=== PATIENT | male | born 1970 | race Caucasian/White ===

== ENCOUNTER 2021-05-11 12:51 | Observation (INO) ==
[2021-05-11 12:23] LABS: ABG ALLEN TEST POS; ABG BASE EXCESS -4.3 mmol/L (-2.0-2.0); ABG HCO3 20.1 mmol/L (22-26)
[2021-05-11 12:47] LABS: BASOPHILS # (AUTO) 0.1 X10^3/uL (0.0-0.1); EOSINOPHILS % (AUTO) 0.2 % (0.9-2.9); HEMATOCRIT 47.4 % (42.0-54.0); HEMOGLOBIN 16.2 g/dL (13.5-18.0); LYMPHOCYTES # (AUTO) 0.7 X10^3/uL (1.3-2.9); LYMPHOCYTES % (AUTO) 18.5 % (21.0-51.0); MEAN CORPUSCULAR HEMOGLOBIN 29.7 pg (27.0-34.0); MEAN CORPUSCULAR HGB CONC 34.2 g/dL (33.0-35.0); MEAN CORPUSCULAR VOLUME 86.9 fL (80.0-100.0); MEAN PLATELET VOLUME 8.9 fL (7.4-11.0); MONOCYTES # (AUTO) 0.4 x10^3/uL (0.3-0.8); MONOCYTES % (AUTO) 10.2 % (0.0-13.0); NEUTROPHILS # (AUTO) 2.7 x10^3/uL (2.2-4.8); NEUTROPHILS % (AUTO) 68.1 % (42.0-75.0); RED BLOOD COUNT 5.46 X10^6/uL (4.7-6.0); RED CELL DISTRIBUTION WIDTH 12.7 % (11.6-16.5)
[~2021-05-11 12:51] MED LIST: NS 1,000 ML IV 1,000 ML IV ONE; NS 1,000 ML IV 1,000 ML ONE; PHARMACY CONSULT - IVERMECTIN XX SCH; REMDESIVIR 200 MG in NS 250 ML IV 250 ML IV ONE; TUSSIONEX PENNKINETIC SUSP PO PRN
--- NOTE | 2021-05-11 13:03 | RAD ---
HISTORYCOVID 19 +STUDYCHEST x-ray, 1 VIEWCOMPARISONNoneFINDINGSProbable mild infiltrates are seen in the periphery of the lower lungs. Appearance could possibly be artifactual from soft tissue attenuation, though. No pneumothorax, cardiomegaly, or pleural effusion is seen.IMPRESSIONPossible mild bilateral pneumonia could be due to COVID-19.Electronically signed by: Antione Valera (May 11, 2021 13:01:31)
[2021-05-11 13:11] LABS: ALANINE AMINOTRANSFERASE 50 Units/L (12-78); ALBUMIN 2.7 g/dL (3.4-5.0); ALKALINE PHOSPHATASE 102 Units/L (46-116); ASPARTATE AMINO TRANSFERASE 58 Units/L (15-37); BLOOD UREA NITROGEN 14 mg/dL (7-18); CALCIUM 8.8 mg/dL (8.5-10.1); CARBON DIOXIDE 23.6 mmol/L (21-32); CHLORIDE 95 mmol/L (98-107); CKMB % 1.7 % (<4); COR CA(FOR HYPOALB) 9.8 mg/dL (8.5-10.1); COR NA(FOR HYPERGLY) 138 mmol/L (136-145); CREATINE KINASE 58 Units/L (39-308); CREATINE KINASE MB < 1.0 ng/mL (0-4.0); CREATININE 1.11 mg/dL (0.70-1.30); SODIUM 131 mmol/L (136-145); TOTAL PROTEIN 7.4 g/dL (6.4-8.2); eGFR NON BLACK RACES > 60 (>60)
[2021-05-11] MEDS ORDERED: NS 1,000 ML IV 1,000 ML ONE (14:17)
[2021-05-11] MEDS ORDERED: LUVOX ONE (14:57)
[2021-05-11] MEDS ORDERED: ZINC SULFATE ONE (14:57)
[2021-05-11] MEDS ORDERED: IVERMECTIN ONE (14:58)
[2021-05-11] MEDS ORDERED: LOVENOX INJ 30 MG SYR SC ONE (14:58)
[2021-05-11] MEDS ORDERED: SOLU-Medrol 40 MG VIAL ONE (14:58)
[2021-05-11] MEDS ORDERED: ROBITUSSIN DM ONE (14:59)
[2021-05-11] MEDS: LOVENOX INJ 30 MG SYR SC SCH ×2 (15:04→20:45)
[2021-05-11] MEDS: SOLU-Medrol 125 MG VIAL IVP SCH ×2 (15:04→22:42)
[2021-05-11] MEDS: LUVOX PO SCH ×2 (15:04→20:24)
[2021-05-11] MEDS: ZINC SULFATE PO SCH ×2 (15:05→20:46)
[2021-05-11] MEDS: ROBITUSSIN DM PO SCH ×4 (15:05→20:46)
[2021-05-11] MEDS: VITAMIN A PO SCH (15:05)
[2021-05-11] MEDS: IVERMECTIN PO SCH (15:05)
[2021-05-11] MEDS: VITAMIN C PO SCH ×2 (15:06→17:00)
[2021-05-11] MEDS: VSL#3 PO SCH (15:06)
[2021-05-11] MEDS: NS 1,000 ML IV 1,000 ML IV SCH ×2 (15:42→20:45)
[2021-05-11] MEDS ORDERED: REMDESIVIR IV ONE (16:05)
[2021-05-11] MEDS ORDERED: NS 250 ML IV 250 ML IV ONE (16:05)
[2021-05-11 16:15] LABS: CKMB % 1.7 % (<4); CREATINE KINASE 60 Units/L (39-308); CREATINE KINASE MB < 1.0 ng/mL (0-4.0)
[2021-05-11] MEDS: BROVANA IN SCH (20:32)
[2021-05-11] MEDS: PULMICORT NEB TX 0.5 MG NEB SCH (20:32)
[2021-05-11] MEDS: NovoLIN R (or HumuLIN R) SUBCUT PRN (20:47)
[2021-05-11 20:50] LABS: CREATINE KINASE MB < 1.0 ng/mL (0-4.0)
[2021-05-11 21:05] LABS: CKMB % 1.5 % (<4); CREATINE KINASE 68 Units/L (39-308)
[2021-05-11] MEDS: AMBIEN PO PRN (21:43)
[2021-05-12] MEDS: NS 1,000 ML IV 1,000 ML IV SCH ×3 (03:13→20:57)
[2021-05-12 05:47] LABS: ALANINE AMINOTRANSFERASE 45 Units/L (12-78); ALBUMIN 2.4 g/dL (3.4-5.0); ALKALINE PHOSPHATASE 92 Units/L (46-116); ASPARTATE AMINO TRANSFERASE 44 Units/L (15-37); BLOOD UREA NITROGEN 18 mg/dL (7-18); CALCIUM 8.4 mg/dL (8.5-10.1); CARBON DIOXIDE 19.5 mmol/L (21-32); CHLORIDE 100 mmol/L (98-107); COR CA(FOR HYPOALB) 9.7 mg/dL (8.5-10.1); COR NA(FOR HYPERGLY) 143 mmol/L (136-145); CREATININE 1.08 mg/dL (0.70-1.30); SODIUM 136 mmol/L (136-145); TOTAL PROTEIN 6.9 g/dL (6.4-8.2); eGFR NON BLACK RACES > 60 (>60)
[2021-05-12 05:57] LABS: BASOPHILS % (AUTO) 0.3 % (0.2-1.0); EOSINOPHILS % (AUTO) 0.1 % (0.9-2.9); HEMATOCRIT 43.9 % (42.0-54.0); HEMOGLOBIN 15.2 g/dL (13.5-18.0); LYMPHOCYTES # (AUTO) 0.7 X10^3/uL (1.3-2.9); LYMPHOCYTES % (AUTO) 27.5 % (21.0-51.0); MEAN CORPUSCULAR HEMOGLOBIN 29.7 pg (27.0-34.0); MEAN CORPUSCULAR HGB CONC 34.5 g/dL (33.0-35.0); MEAN PLATELET VOLUME 8.8 fL (7.4-11.0); MONOCYTES # (AUTO) 0.1 x10^3/uL (0.3-0.8); MONOCYTES % (AUTO) 4.3 % (0.0-13.0); NEUTROPHILS # (AUTO) 1.6 x10^3/uL (2.2-4.8); NEUTROPHILS % (AUTO) 67.8 % (42.0-75.0); RED BLOOD COUNT 5.11 X10^6/uL (4.7-6.0); RED CELL DISTRIBUTION WIDTH 12.7 % (11.6-16.5); WHITE BLOOD COUNT 2.4 X10^3/uL (3.6-10.0)
[2021-05-12] MEDS: NovoLIN R (or HumuLIN R) SUBCUT PRN ×4 (05:58→21:00)
[2021-05-12] MEDS: SOLU-Medrol 125 MG VIAL IVP SCH ×3 (05:58→22:10)
[2021-05-12] MEDS: VITAMIN C PO SCH ×4 (05:58→17:07)
--- NOTE | 2021-05-12 06:03 | RAD ---
HISTORYSOBSTUDYCHEST, 1 [facility]COMPARISONAbra[facility] 2021 at 12:21 p.m.TECHNIQUEPortable chest radiographFINDINGSHeart size and mediastinal contours are normal. Lungs are hypoinflated but otherwise clear as are the pleural spaces. No free air or pneumothorax. No acute bony abonormality.IMPRESSIONNo organized pulmonary infiltrates identified by portable technique.Electronically signed by: HANS PERKINS (May 12, 2021 06:02:48)
[2021-05-12] MEDS: PULMICORT NEB TX 0.5 MG NEB SCH ×2 (09:11→20:34)
[2021-05-12] MEDS: BROVANA IN SCH ×2 (09:11→20:34)
[2021-05-12] MEDS: IVERMECTIN PO SCH (09:21)
[2021-05-12] MEDS: LOVENOX INJ 30 MG SYR SC SCH ×2 (09:22→20:59)
[2021-05-12] MEDS: ROBITUSSIN DM PO SCH ×4 (09:23→21:00)
[2021-05-12] MEDS: VITAMIN A PO SCH (09:23)
[2021-05-12] MEDS: LUVOX PO SCH ×2 (09:23→20:59)
[2021-05-12] MEDS: REMDESIVIR 100 MG in NS 250 ML IV 250 ML IV SCH (09:23)
[2021-05-12] MEDS: VSL#3 PO SCH (09:23)
[2021-05-12] MEDS: ZINC SULFATE PO SCH ×2 (09:24→21:00)
[2021-05-12] MEDS ORDERED: ROBAXIN PO PRN (10:28)
[2021-05-12] MEDS: ZOSYN VIAL 3.375 GRAMS 3.375 G in NS 100 ML IV + SPIKE MINIBAG* 100 ML IV SCH ×3 (11:35→22:10)
[2021-05-12] MEDS: VORTIOXETINE 20 MG PO SCH (11:36)
[2021-05-12] MEDS: LAMICTAL TAB 100 MG PO SCH (11:36)
[2021-05-12] MEDS: ZOCOR TAB 40 MG PO SCH ×2 (11:36→21:01)
[2021-05-12 11:58] VITALS: BMI 40.4
[2021-05-12 13:12] LABS: PLATELET MORPHOLOGY COMMENT NORMAL (NORMAL)
--- NOTE | 2021-05-12 14:57 | DR.H&P ---
H&P History & Physical for Day of: H&P Date: 05/12/21 Chief Complaint Chief Complaint: fatigue, SOB Allergies Allergies Allergy/AdvReac Type Severity Reaction Status Date / Time lisinopril Allergy Unknown Verified 05/11/21 13:51 History of Present Illness History of Present Illness: Mr Julien is a 50 y/o male with a PMH Type 2 DM, HTN, HLD, chronic pain/anxiety and obesity presents with worsening dyspnea and fatigue. Patient tested positive for covid on 05/05/21.He reports feeling weaker for the last few days and worsening dyspnea on exertion. He is currently on 2L NC. He was on 3L before. He states he feels better today. Labs/imaging reviewed CXR: possible b/l pneumonia [id number]/60/20.1 Plan: Wean O2 as tolerated, continue IV antibiotics, add Zosyn. Continue IV Remdesivir. Continue IV Solumedrol, nebs and IS. Continue home medications. Will decrease IVF to 75cc/hr. Ambulate as tolerated. PT/OT as tolerated. Monitor AM labs/imaging. Past Medical History Past Medical History: Diabetes, Dyslipidemia and Hypertension Additional Medical History: Obesity Past Surgical History Surgical History: Lithotripsy Social History Does patient currently use any type of tobacco product: No Have you used tobacco products in the last 12 months: No Type of Tobacco Use: None Alcohol Use: None Drug Use: None Medications Home Medications: lisinopril Allergy (Unknown, Verified 05/11/21 13:51) CONTINUE taking the following medications ciprofloxacin HCl 500 mg PO BID 05/11/21 [History] clonazepam 1 mg PO BID 05/11/21 [History] insulin degludec [Tresiba FlexTouch U-200] 20 unit SUBCUT QHS 05/11/21 [History] lamotrigine 200 mg PO DAILY 05/11/21 [History] losartan 50 mg PO QHS 05/11/21 [History] metformin 1,000 mg PO BID 05/11/21 [History] methocarbamol 750 mg PO BID PRN 05/11/21 [History] mupirocin 1 applic TOPICAL TID 05/11/21 [History] oxycodone-acetaminophen 1 tab PO QID PRN 05/11/21 [History] quetiapine 150 mg PO QHS 05/11/21 [History] simvastatin 40 mg PO QHS 05/11/21 [History] vortioxetine [Trintellix] 20 mg PO DAILY 05/11/21 [History] zolpidem 12.5 mg PO QHS 05/11/21 [History] Labs Result Diagrams: 05/12/21 05:04 05/12/21 11:57 Labs: 05/11/21 20:59 Sputum - Expectorated Sputum - Final Laboratory WBC 2.4 X10^3/uL (3.6-10.0) L 05/12/21 05:04 RBC 5.11 X10^6/uL (4.7-6.0) 05/12/21 05:04 Hgb 15.2 g/dL (13.5-18.0) 05/12/21 05:04 Hct 43.9 % (42.0-54.0) 05/12/21 05:04 MCV 86.0 fL (80.0-100.0) 05/12/21 05:04 MCH 29.7 pg (27.0-34.0) 05/12/21 05:04 MCHC 34.5 g/dL (33.0-35.0) 05/12/21 05:04 RDW 12.7 % (11.6-16.5) 05/12/21 05:04 Plt Count 121 X10^3/uL (150.0-450.0) L 05/12/21 05:04 Plt Count Comment Adequate (ADEQUATE) 05/12/21 05:04 MPV 8.8 fL (7.4-11.0) 05/12/21 05:04 Neut % (Auto) 67.8 % (42.0-75.0) 05/12/21 05:04 Lymph % (Auto) 27.5 % (21.0-51.0) 05/12/21 05:04 [place] % (Auto) 4.3 % (0.0-13.0) 05/12/21 05:04 Eos % (Auto) 0.1 % (0.9-2.9) L 05/12/21 05:04 Baso % (Auto) 0.3 % (0.2-1.0) 05/12/21 05:04 Neut # (Auto) 1.6 x10^3/uL (2.2-4.8) L 05/12/21 05:04 Lymph # (Auto) 0.7 X10^3/uL (1.3-2.9) L 05/12/21 05:04 [place] # (Auto) 0.1 x10^3/uL (0.3-0.8) L 05/12/21 05:04 Eos # (Auto) 0.0 x10^3/uL (0.0-0.2) 05/12/21 05:04 Baso # (Auto) 0.0 X10^3/uL (0.0-0.1) 05/12/21 05:04 Absolute Nucleated RBC 0.1 /100WBC 05/12/21 05:04 Total Counted 100 05/12/21 05:04 Neutrophils % (Manual) 75 % (39-76) 05/12/21 05:04 Lymphocytes % (Manual) 21 % (13-43) 05/12/21 05:04 Monocytes % (Manual) 4 % (4-9) 05/12/21 05:04 Plt Morphology Comment Normal (NORMAL) 05/12/21 05:04 RBC Morphology Normal (NORMAL) 05/12/21 05:04 D-Dimer 0.96 ug/ml (0.0-0.57) H* 05/11/21 12:27 Sample Site Lrad 05/11/21 12:15 ABG pH 7.380 (7.35-7.45) 05/11/21 12:15 ABG pCO2 34.0 mmHg (35.0-45.0) L 05/11/21 12:15 ABG pO2 60.0 mmHg (80.0-100.0) L 05/11/21 12:15 ABG HCO3 20.1 mmol/L (22-26) L 05/11/21 12:15 ABG O2 Saturation 90.0 % (90-100) 05/11/21 12:15 ABG Base Excess -4.3 mmol/L (-2.0-2.0) L 05/11/21 12:15 Joshua Test Pos 05/11/21 12:15 A-a Gradient 47.0 mmHg 05/11/21 12:15 FiO2 21.0 05/11/21 12:15 Blood Gas 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 05/11/21 12:15 Sodium 136 mmol/L (136-145) 05/12/21 05:04 Corrected Sodium 143 mmol/L (136-145) 05/12/21 05:04 Potassium 5.0 mmol/L (3.5-5.1) 05/12/21 05:04 Chloride 100 mmol/L (98-107) 05/12/21 05:04 Carbon Dioxide 19.5 mmol/L (21-32) L 05/12/21 05:04 BUN 18 mg/dL (7-18) 05/12/21 05:04 Creatinine 1.08 mg/dL (0.70-1.30) 05/12/21 05:04 Est GFR (MDRD) Af Amer > 60 (>60) 05/12/21 05:04 Est GFR (MDRD) Non-Af > 60 (>60) 05/12/21 05:04 Glucose 432 mg/dL (65-99) H 05/12/21 11:57 POC Glucose (mg/dL) 428 mg/dL (65-99) H 05/12/21 11:40 Calcium 8.4 mg/dL (8.5-10.1) L 05/12/21 05:04 Corrected Calcium 9.7 mg/dL (8.5-10.1) 05/12/21 05:04 Total Bilirubin 0.40 mg/dL (0.2-1.0) 05/12/21 05:04 AST 44 Units/L (15-37) H 05/12/21 05:04 ALT 45 Units/L (12-78) 05/12/21 05:04 Alkaline Phosphatase 92 Units/L (46-116) 05/12/21 05:04 Creatine Kinase 68 Units/L (39-308) 05/11/21 20:07 CK-MB (CK-2) < 1.0 ng/mL (0-4.0) 05/11/21 20:07 CK/CKMB % Calc 1.5 % (<4) 05/11/21 20:07 Troponin I High Sens 4.4 ng/L (4.0-60.0) 05/11/21 20:07 C-Reactive Protein 66.60 mg/L (0-3.0) H 05/12/21 05:04 B-Natriuretic Peptide 77.0 pg/mL (0-79) 05/12/21 05:04 Total Protein 6.9 g/dL (6.4-8.2) 05/12/21 05:04 Albumin 2.4 g/dL (3.4-5.0) L 05/12/21 05:04 Globulin 4.5 g/dL (2.5-4.5) 05/12/21 05:04 Albumin/Globulin Ratio 0.5 Ratio (1.1-2.1) L 05/12/21 05:04 Review of Systems Constitutional: Weakness and Malaise Eyes: No Symptoms Reported ENT: No Symptoms Reported Respiratory: Cough, Shortness of Breath and SOB with Excertion Cardiovascular: No Symptoms Reported Gastrointestinal: Nausea Genitourinary: No Symptoms Reported Musculoskeletal: No Symptoms Reported Skin: No Symptoms Reported Neurological: No Symptoms Reported Physical Exam Vital Signs: Temperature 97.6 F Pulse Rate [Right Radial] 94 Pulse Rate 71 Respiratory Rate 18 Blood Pressure [Left Arm] 113/74 O2 Sat by Pulse Oximetry 94 Oriented: Normal Eyes: Normal Ear: Normal Nose: Normal Throat: Normal Respiratory: Diminished Throughout Cardiovascular: Normal Auscultation: Bowel Sounds: Normal Palpation: Normal Tenderness: Normal Skin: Normal Musculoskeletal: Normal Psychiatric: Normal Mood Description: Calm Affect: Normal Speech Pattern: Clear and Appropriate Assessment/Plan (1) Pneumonia due to COVID-19 virus: Status: Acute (2) HTN (hypertension): Qualifiers: Hypertension type: primary hypertension Qualified Code(s): I10 - Essential (primary) hypertension Status: Acute (3) Obesity: Qualifiers: Body mass index: BMI 40.0-44.9 Obesity classification: adult class 3 (BMI >= 40) Obesity type: unspecified obesity type Serious obesity comorbidity presence: without serious comorbidity Qualified Code(s): E66.01 - Morbid (severe) obesity due to excess calories; Z68.41 - Body mass index [BMI] 40.0-44.9, adult Status: Acute (4) HLD (hyperlipidemia): Qualifiers: Hyperlipidemia type: unspecified Qualified Code(s): E78.5 - Hyperlipidemia, unspecified Status: Acute Review H&P Reviewed: Yes Patient was examined?: Yes
[2021-05-12] MEDS: COZAAR PO SCH (20:57)
[2021-05-12] MEDS: SNACK - Diabetic Appropriate PO SCH (20:57)
[2021-05-12] MEDS: LANTUS SC SCH (20:58)
[2021-05-12] MEDS: AMBIEN PO PRN (21:13)
[2021-05-13] MEDS: VITAMIN C PO SCH ×5 (00:08→23:57)
[2021-05-13] MEDS: NovoLIN R (or HumuLIN R) SUBCUT PRN ×4 (01:22→23:14)
[2021-05-13] MEDS: NS 1,000 ML IV 1,000 ML IV SCH ×3 (04:50→21:54)
[2021-05-13] MEDS: ZOSYN VIAL 3.375 GRAMS 3.375 G in NS 100 ML IV + SPIKE MINIBAG* 100 ML IV SCH ×3 (05:47→21:52)
[2021-05-13] MEDS: SOLU-Medrol 125 MG VIAL IVP SCH (05:47)
[2021-05-13 06:16] LABS: BASOPHILS % (AUTO) 0.2 % (0.2-1.0); HEMATOCRIT 47.2 % (42.0-54.0); HEMOGLOBIN 16.2 g/dL (13.5-18.0); LYMPHOCYTES % (AUTO) 12.1 % (21.0-51.0); MEAN CORPUSCULAR HEMOGLOBIN 29.8 pg (27.0-34.0); MEAN CORPUSCULAR HGB CONC 34.3 g/dL (33.0-35.0); MONOCYTES # (AUTO) 0.4 x10^3/uL (0.3-0.8); MONOCYTES % (AUTO) 5.4 % (0.0-13.0); NEUTROPHILS # (AUTO) 6.6 x10^3/uL (2.2-4.8); NEUTROPHILS % (AUTO) 82.3 % (42.0-75.0); RED BLOOD COUNT 5.42 X10^6/uL (4.7-6.0); RED CELL DISTRIBUTION WIDTH 12.8 % (11.6-16.5)
--- NOTE | 2021-05-13 06:31 | RAD ---
HISTORYSOB HX: HTN, DMSTUDYCHEST, 1 [id number]/2022FINDINGSThe trachea is midline. The cardiac silhouette is unremarkable. The lungs are clear without focal infiltrate or effusion. Pulmonary vasculature within normal limits. No pneumothorax. The bony thorax is unremarkable.IMPRESSIONNo acute cardiopulmonary findings .Electronically signed by: Bernabe Diaz (May 13, 2021 06:29:57)
[2021-05-13 06:35] LABS: CALCIUM 9.2 mg/dL (8.5-10.1); CARBON DIOXIDE 20.2 mmol/L (21-32); CREATININE 1.73 mg/dL (0.70-1.30)
[2021-05-13] MEDS: BROVANA IN SCH ×2 (09:05→20:40)
[2021-05-13] MEDS: PULMICORT NEB TX 0.5 MG NEB SCH ×2 (09:05→20:40)
[2021-05-13] MEDS: VSL#3 PO SCH (10:00)
[2021-05-13] MEDS: VITAMIN A PO SCH (10:00)
[2021-05-13] MEDS: REMDESIVIR 100 MG in NS 250 ML IV 250 ML IV SCH (10:00)
[2021-05-13] MEDS: LAMICTAL TAB 100 MG PO SCH (10:00)
[2021-05-13] MEDS: VORTIOXETINE 20 MG PO SCH (10:00)
[2021-05-13] MEDS: IVERMECTIN PO SCH (10:00)
[2021-05-13] MEDS: ZINC SULFATE PO SCH ×2 (10:00→21:52)
[2021-05-13] MEDS: LUVOX PO SCH ×2 (10:00→21:55)
[2021-05-13] MEDS: LOVENOX INJ 30 MG SYR SC SCH ×2 (10:00→21:54)
[2021-05-13] MEDS: ROBITUSSIN DM PO SCH ×4 (10:00→21:57)
--- NOTE | 2021-05-13 13:07 | PCM.PROG ---
Progress Note Progress Note for Day of Date of Exam: 05/13/21 Subjective Subjective: Patient seen at bedside, no events overnight. Patient remained on room air for most of the day yesterday. He has been ambulating around the room, denies dyspnea on exertion. He was placed back on 2L overnight while sleeping. He denies fever or chills. He reports normal appetite. He did have elevated FSBG yesterday. Labs/imaging reviewed Plan: monitor patient on room air, encouraged to ambulate as tolerated. Patient's creat elevated this morning, will increase IVF to 125cc/hr. Will taper solumedrol, continue SSI and lantus. Continue nebs, pulmicort and IS. Continue IV antibiotics and Remdesivir. Monitor AM labs/imaging. Past Medical Family Social History Past Med/Fam/Surg Hx: No changes since H&P Allergies: Allergies lisinopril Allergy (Unknown, Verified 05/11/21 13:51) Review of Systems ROS: No change since H&P Vital Signs and I&O's Vital Signs: Temperature 97.5 F Pulse Rate [Right Radial] 75 Pulse Rate 87 Respiratory Rate 20 Blood Pressure [Left Arm] 129/76 O2 Sat by Pulse Oximetry 95 Intake and Output: Intake & Output 05/10/21 05/11/21 05/12/21 05/13/21 23:59 23:59 23:59 23:59 Intake Total 640 / 640 4520 / 4520 648 / 648 Balance 640 / 640 4520 / 4520 648 / 648 Physical Exam Oriented: Normal Eyes: Normal Ear: Normal Nose: Normal Throat: Normal Respiratory: Generalized and Diminished Cardiovascular: Normal Auscultation: Bowel Sounds: Normal Tenderness: Normal Skin: Normal Musculoskeletal: Normal Psychiatric: Normal Mood Description: Calm Affect: Normal Speech Pattern: Clear and Appropriate Laboratory and Diagnostics Result Diagrams: 05/13/21 05:51 05/13/21 05:51 Labs: 05/11/21 20:59 Sputum - Expectorated Sputum Sputum Culture - Preliminary 05/11/21 20:59 Sputum - Expectorated Sputum - Final Laboratory WBC 8.0 X10^3/uL (3.6-10.0) 05/13/21 05:51 RBC 5.42 X10^6/uL (4.7-6.0) 05/13/21 05:51 Hgb 16.2 g/dL (13.5-18.0) 05/13/21 05:51 Hct 47.2 % (42.0-54.0) 05/13/21 05:51 MCV 87.0 fL (80.0-100.0) 05/13/21 05:51 MCH 29.8 pg (27.0-34.0) 05/13/21 05:51 MCHC 34.3 g/dL (33.0-35.0) 05/13/21 05:51 RDW 12.8 % (11.6-16.5) 05/13/21 05:51 Plt Count 190 X10^3/uL (150.0-450.0) 05/13/21 05:51 Plt Count Comment Adequate (ADEQUATE) 05/12/21 05:04 MPV 9.0 fL (7.4-11.0) 05/13/21 05:51 Neut % (Auto) 82.3 % (42.0-75.0) H 05/13/21 05:51 Lymph % (Auto) 12.1 % (21.0-51.0) L 05/13/21 05:51 [place] % (Auto) 5.4 % (0.0-13.0) 05/13/21 05:51 Eos % (Auto) 0.0 % (0.9-2.9) L 05/13/21 05:51 Baso % (Auto) 0.2 % (0.2-1.0) 05/13/21 05:51 Neut # (Auto) 6.6 x10^3/uL (2.2-4.8) H 05/13/21 05:51 Lymph # (Auto) 1.0 X10^3/uL (1.3-2.9) L 05/13/21 05:51 [place] # (Auto) 0.4 x10^3/uL (0.3-0.8) 05/13/21 05:51 Eos # (Auto) 0.0 x10^3/uL (0.0-0.2) 05/13/21 05:51 Baso # (Auto) 0.0 X10^3/uL (0.0-0.1) 05/13/21 05:51 Absolute Nucleated RBC 0.0 /100WBC 05/13/21 05:51 Total Counted 100 05/12/21 05:04 Neutrophils % (Manual) 75 % (39-76) 05/12/21 05:04 Lymphocytes % (Manual) 21 % (13-43) 05/12/21 05:04 Monocytes % (Manual) 4 % (4-9) 05/12/21 05:04 Plt Morphology Comment Normal (NORMAL) 05/12/21 05:04 RBC Morphology Normal (NORMAL) 05/12/21 05:04 D-Dimer 0.96 ug/ml (0.0-0.57) H* 05/11/21 12:27 Sample Site Lrad 05/11/21 12:15 ABG pH 7.380 (7.35-7.45) 05/11/21 12:15 ABG pCO2 34.0 mmHg (35.0-45.0) L 05/11/21 12:15 ABG pO2 60.0 mmHg (80.0-100.0) L 05/11/21 12:15 ABG HCO3 20.1 mmol/L (22-26) L 05/11/21 12:15 ABG O2 Saturation 90.0 % (90-100) 05/11/21 12:15 ABG Base Excess -4.3 mmol/L (-2.0-2.0) L 05/11/21 12:15 Joshua Test Pos 05/11/21 12:15 A-a Gradient 47.0 mmHg 05/11/21 12:15 FiO2 21.0 05/11/21 12:15 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 05/11/21 12:15 Sodium 139 mmol/L (136-145) 05/13/21 05:51 Corrected Sodium 148 mmol/L (136-145) H 05/13/21 05:51 Potassium 3.9 mmol/L (3.5-5.1) 05/13/21 05:51 Chloride 101 mmol/L (98-107) 05/13/21 05:51 Carbon Dioxide 20.2 mmol/L (21-32) L 05/13/21 05:51 BUN 24 mg/dL (7-18) H 05/13/21 05:51 Creatinine 1.73 mg/dL (0.70-1.30) H 05/13/21 05:51 Est GFR (MDRD) Af Amer 54 (>60) L 05/13/21 05:51 Est GFR (MDRD) Non-Af 45 (>60) L 05/13/21 05:51 Glucose 461 mg/dL (65-99) H 05/13/21 05:51 POC Glucose (mg/dL) 496 mg/dL (65-99) H 05/12/21 23:12 Calcium 9.2 mg/dL (8.5-10.1) 05/13/21 05:51 Corrected Calcium Cancelled 05/13/21 05:51 Total Bilirubin Cancelled 05/13/21 05:51 AST Cancelled 05/13/21 05:51 ALT Cancelled 05/13/21 05:51 Alkaline Phosphatase Cancelled 05/13/21 05:51 Creatine Kinase 68 Units/L (39-308) 05/11/21 20:07 CK-MB (CK-2) < 1.0 ng/mL (0-4.0) 05/11/21 20:07 CK/CKMB % Calc 1.5 % (<4) 05/11/21 20:07 Troponin I High Sens 4.4 ng/L (4.0-60.0) 05/11/21 20:07 C-Reactive Protein 44.00 mg/L (0-3.0) H 05/13/21 05:51 B-Natriuretic Peptide 77.0 pg/mL (0-79) 05/12/21 05:04 Total Protein Cancelled 05/13/21 05:51 Albumin Cancelled 05/13/21 05:51 Globulin Cancelled 05/13/21 05:51 Albumin/Globulin Ratio Cancelled 05/13/21 05:51 Plan (1) Pneumonia due to COVID-19 virus: Status: Acute (2) HTN (hypertension): Status: Acute Qualifiers: Hypertension type: primary hypertension Qualified Code(s): I10 - Essential (primary) hypertension (3) Obesity: Status: Acute Qualifiers: Body mass index: BMI 40.0-44.9 Obesity classification: adult class 3 (BMI >= 40) Obesity type: unspecified obesity type Serious obesity comorbidity presence: without serious comorbidity Qualified Code(s): E66.01 - Morbid (severe) obesity due to excess calories; Z68.41 - Body mass index [BMI] 40.0- 44.9, adult (4) HLD (hyperlipidemia): Status: Acute Qualifiers: Hyperlipidemia type: unspecified Qualified Code(s): E78.5 - Hyperlipidemia, unspecified (5) Diabetes: Status: Acute Qualifiers: Diabetes mellitus complication status: without complication Diabetes mellitus retirement insulin use: with retirement use Diabetes mellitus type: type 2 Qualified Code(s): E11.9 - Type 2 diabetes mellitus without complications; Z79.4 - senior living (current) use of insulin
[2021-05-13] MEDS: COZAAR PO SCH (21:53)
[2021-05-13] MEDS: SNACK - Diabetic Appropriate PO SCH (21:54)
[2021-05-13] MEDS: LANTUS SC SCH (21:55)
[2021-05-13] MEDS: ZOCOR TAB 40 MG PO SCH (21:57)
[2021-05-13] MEDS: AMBIEN PO PRN (22:00)
[2021-05-14] MEDS: NovoLIN R (or HumuLIN R) SUBCUT PRN ×2 (02:30→12:20)
[2021-05-14] MEDS: NS 1,000 ML IV 1,000 ML IV SCH (05:16)
[2021-05-14 05:17] LABS: BASOPHILS % (AUTO) 0.1 % (0.2-1.0); HEMATOCRIT 40.9 % (42.0-54.0); LYMPHOCYTES # (AUTO) 0.8 X10^3/uL (1.3-2.9); LYMPHOCYTES % (AUTO) 11.3 % (21.0-51.0); MEAN CORPUSCULAR HGB CONC 34.7 g/dL (33.0-35.0); MEAN CORPUSCULAR VOLUME 86.5 fL (80.0-100.0); MEAN PLATELET VOLUME 8.5 fL (7.4-11.0); MONOCYTES # (AUTO) 0.6 x10^3/uL (0.3-0.8); MONOCYTES % (AUTO) 8.8 % (0.0-13.0); NEUTROPHILS # (AUTO) 5.9 x10^3/uL (2.2-4.8); NEUTROPHILS % (AUTO) 79.8 % (42.0-75.0); RED BLOOD COUNT 4.73 X10^6/uL (4.7-6.0); RED CELL DISTRIBUTION WIDTH 12.7 % (11.6-16.5); WHITE BLOOD COUNT 7.4 X10^3/uL (3.6-10.0)
[2021-05-14 05:31] LABS: BLOOD UREA NITROGEN 16 mg/dL (7-18); CALCIUM 8.4 mg/dL (8.5-10.1); CARBON DIOXIDE 23.6 mmol/L (21-32); CHLORIDE 106 mmol/L (98-107); COR NA(FOR HYPERGLY) 146 mmol/L (136-145); CREATININE 1.01 mg/dL (0.70-1.30); SODIUM 140 mmol/L (136-145); eGFR NON BLACK RACES > 60 (>60)
[2021-05-14 05:43] LABS: HEMOGLOBIN 14.2 g/dL (13.5-18.0)
[2021-05-14] MEDS: VITAMIN C PO SCH (05:44)
[2021-05-14] MEDS: ZOSYN VIAL 3.375 GRAMS 3.375 G in NS 100 ML IV + SPIKE MINIBAG* 100 ML IV SCH (05:45)
--- NOTE | 2021-05-14 06:20 | RAD ---
HISTORYSOBSTUDYCHEST, 1 [id number]/2022.TECHNIQUEAP view of the chestFINDINGSCardiac and mediastinal contours are within normal limits. Curvilinear left base opacity consistent with subsegmental atelectasis or scar. There is blunting of the left costophrenic sulcus. No pneumothorax. Soft tissue attenuation limits evaluation.IMPRESSIONLeft base subsegmental atelectasis versus scar. Blunted left costophrenic sulcus can be seen with pleural scarring or small pleural effusion.Electronically signed by: Martin Gonzales (May 14, 2021 06:19:23)
[2021-05-14] MEDS ORDERED: KLOR-CON PO PRN (07:24)
[2021-05-14] MEDS ORDERED: K-RIDER 10 MEQ/NS 100 ML 10 MEQ/100 ML BAG IV PRN (07:24)
[2021-05-14] MEDS ORDERED: POTASSIUM CHL 60 MEQ/NS 0.45% 500 ML IV PRN (07:24)
[2021-05-14] MEDS ORDERED: POTASSIUM CHL 40 MEQ/NS 0.45% 500 ML IV PRN (07:24)
[2021-05-14] MEDS ORDERED: K-DUR TAB 20 MEQ PO PRN (07:24)
[2021-05-14] MEDS ORDERED: MAGNESIUM SULFATE 1 GRAM/100 mL PREMIX 1 G/100 ML BAG IV PRN (07:24)
[2021-05-14] MEDS ORDERED: POTASSIUM CHLORIDE LIQ 20 MEQ UDC PO PRN (07:24)
[2021-05-14] MEDS ORDERED: MICRO K EXTEN CAP 10 MEQ PO PRN (07:24)
[2021-05-14] MEDS ORDERED: SOLU-Medrol 125 MG VIAL IVP SCH (09:00)
[2021-05-14] MEDS: IVERMECTIN PO SCH (09:01)
[2021-05-14] MEDS: LOVENOX INJ 30 MG SYR SC SCH (09:02)
[2021-05-14] MEDS: LAMICTAL TAB 100 MG PO SCH (09:02)
[2021-05-14] MEDS: ROBITUSSIN DM PO SCH (09:03)
[2021-05-14] MEDS: REMDESIVIR 100 MG in NS 250 ML IV 250 ML IV SCH (09:03)
[2021-05-14] MEDS: LUVOX PO SCH (09:03)
[2021-05-14] MEDS: VORTIOXETINE 20 MG PO SCH (09:05)
[2021-05-14] MEDS: VSL#3 PO SCH (09:05)
[2021-05-14] MEDS: VITAMIN A PO SCH (09:05)
[2021-05-14] MEDS: ZINC SULFATE PO SCH (09:06)
[2021-05-14] MEDS: PULMICORT NEB TX 0.5 MG NEB SCH (09:35)
[2021-05-14] MEDS: BROVANA IN SCH (09:40)
[2021-05-14 10:19] VITALS: BP 128/76
[2021-05-14 11:29] LABS: ALANINE AMINOTRANSFERASE 34 Units/L (12-78); ALBUMIN 2.3 g/dL (3.4-5.0); ALKALINE PHOSPHATASE 84 Units/L (46-116); ASPARTATE AMINO TRANSFERASE 23 Units/L (15-37); COR CA(FOR HYPOALB) 9.8 mg/dL (8.5-10.1); TOTAL PROTEIN 6.1 g/dL (6.4-8.2)
== END 2021-05-14 12:30 | disposition home or self-care (01) ==
LOC: U → MED/SURG 15:34
PROVIDERS: ADMIT Internal Medicine; ATTEND Internal Medicine
DX: I10 Essential (primary) hypertension; R06.02 Shortness of breath; J12.82 Pneumonia due to coronavirus disease 2019; U07.1 COVID-19; Z79.4 Long term (current) use of insulin; E11.65 Type 2 diabetes mellitus with hyperglycemia; E66.01 Morbid (severe) obesity due to excess calories; E78.2 Mixed hyperlipidemia